=== PATIENT | male | born 1955 | race Caucasian/White ===

== ENCOUNTER → 2018-08-24 | Outpatient (CLI) | payer BC ==
--- NOTE | 2018-08-24 11:48 | Diagnostic Imaging Report ---
EXAM: Cervical spine radiographs, 5 views INDICATION: Acquired spondylolisthesis. COMPARISON: None FINDINGS: BONES: C1-C7 are visualized on the lateral view. Mild reversal of the cervical lordosis. Minimal retrolisthesis of C4 on C5 and C5 on C6. C1-C2 alignment is maintained. No acute displaced fractures. Vertebral body heights are preserved. DISCS: Moderate degenerative disc changes, most pronounced at C4-C5. JOINTS: Mild facet degenerative changes. Likely mild to moderate bilateral neural foraminal stenosis at C3-C4 and C4-C5. SOFT TISSUES: The prevertebral soft tissues are unremarkable. IMPRESSION: No acute radiographic abnormality Moderate degenerative disc changes with likely bilateral mild to moderate neural foraminal stenosis at C3-C4 and C4-C5. Signed by: Dr. Vance Rankin MD on 08/24/2018 11:45 AM
== END ==
LOC: RAD 10:44
PROVIDERS: ATTEND Internal Medicine
DX: M43.02 Spondylolysis, cervical region (principal)
CPT/HCPCS: 72050

== ENCOUNTER → 2021-08-16 | Outpatient (CLI) | payer MEDICARE | LOC: MRI 13:53 | PROVIDERS: ATTEND Internal Medicine | DX: M06.9 Rheumatoid arthritis, unspecified (principal) | CPT/HCPCS: 72148 ==